=== PATIENT | male | born 1965 | race Caucasian/White ===

== ENCOUNTER 2017-07-18 08:31 | Day surgery (SDC) | payer OTHER ==
[~2017-07-18] VITALS: Ht 175.3 cm; Wt 79.3 kg
[~2017-07-18 08:31] MED LIST: ASPI325 PO; BENZ100A PO; CYCL10 PO; FISH OIL 1,0001 EAC1 PO; Ibuprofen Ib200 MG PO; NAPR500 PO; OMEP20ER PO; PROM25 PO; RANI150 PO; RXCYCL10 PO; RXPROACE PO; Synthroid25 MCG PO
[2017-07-18] MEDS ORDERED: PANT20 (09:13)
== END 2017-07-18 10:38 | disposition home or self-care (01) ==
LOC: ORSCSDS 08:31
PROVIDERS: Internal Medicine Gastroenterology
PROC: 0DB68ZX Excision of Stomach, Via Natural or Artificial Opening Endoscopic, Diagnostic (ICD-10-PCS; principal; 2017-07-18 10:15)
PROC: 0DB58ZX Excision of Esophagus, Via Natural or Artificial Opening Endoscopic, Diagnostic (ICD-10-PCS; principal; 2017-07-18 10:15)
DX: R11.2 Nausea with vomiting, unspecified (principal); K29.70 Gastritis, unspecified, without bleeding; K29.80 Duodenitis without bleeding; K20.9 Esophagitis, unspecified; K21.9 Gastro-esophageal reflux disease without esophagitis; E03.9 Hypothyroidism, unspecified; E78.5 Hyperlipidemia, unspecified; Z79.899 Other long term (current) drug therapy
CPT/HCPCS: 88305; 88342; J7120

== ENCOUNTER → 2024-08-30 | Outpatient (CLI) | payer OTHER ==
[~2024-08-30] MED LIST changes: +PANT20
[2024-09-05 07:51] LABS: CALCIUM, URINE - PER 24H 89 mg/d (100-250); CALCIUM, URINE - PER VOLUME 14.9 mg/dL; CHLORIDE, URINE - PER 24H 95 mmol/d (140-250); CHLORIDE, URINE - PER VOLUME 158 mmol/L; CITRIC ACID, URINE - PER 24H 351 mg/d (320-1240); CITRIC ACID,URINE - PER VOLUME 585 mg/L; CREATININE, URINE - PER 24H 1014 mg/d (800-2100); CREATININE, URINE - PER VOLUME 169 mg/dL; HOURS COLLECTED 24 hr; MAGNESIUM, URINE - PER VOLUME 7.5 mg/dL; MAGNESIUM, URINE PER 24H 45 mg/d (12-199); OXALATE, URINE - PER 24H 13 mg/d (16-49); OXALATE, URINE - PER VOLUME 22 mg/L; PH, URINE 6.18 (5.00-7.50); PHOSPHORUS, URINE - PER 24H 630 mg/d (400-1300); PHOSPHORUS, URINE - PER VOLUME 105 mg/dL; POTASSIUM, URINE - PER 24H 33 mmol/d (25-125); POTASSIUM, URINE - PER VOLUME 55 mmol/L; SODIUM, URINE - PER 24H 105 mmol/d (51-286); SODIUM, URINE - PER VOLUME 175 mmol/L; SULFATE, URINE - PER 24H 13 mmol/d (6-30); SULFATE, URINE - PER VOLUME 22 mmol/L; TOTAL VOLUME 600 mL; URIC ACID, URINE - PER 24H 334 mg/d (250-750); URIC ACID, URINE - PER VOLUME 55.6 mg/dL; URINE SUPERSATURATION INTERP Abnormal; URINE SUPERSATURATION, CAHPO4 3.33; URINE SUPERSATURATION, CAOX 4.65; URINE SUPERSATURATION, UA CALC 0.54
== END | disposition home or self-care (01) ==
LOC: LAB 07:00 → LAB SHORT 07:00
PROVIDERS: Nurse Practitioner Acute Care
DX: N20.0 Calculus of kidney (principal)
CPT/HCPCS: 81003; 82131; 82140; 82340; 82436; 82507; 82570; 83735; 83935; 83945; 84105; 84133; 84300; 84392; 84560